=== PATIENT | female | born 1965 | race Caucasian/White ===

== ENCOUNTER 2018-07-21 07:09 | Day surgery (SDC) | payer OTHER ==
[2018-07-21] MEDS: BUPIVACAINE 0.25% (MPF) 30 ML INJ INJ
[2018-07-21] MEDS ORDERED: CEFAZOLIN 2 GM/50 ML (PMX) 50 ML IVPB (09:30)
[2018-07-21] MEDS ORDERED: SOD CHLORIDE 0.9% 1,000 ML IV (09:30)
[2018-07-21] MEDS ORDERED: MIDAZOLAM 1 MG/ML 2 ML INJ (10:16)
[2018-07-21] MEDS: BUPIVACAINE 0.25% (MPF) 30 ML INJ (10:16)
[2018-07-21] MEDS ORDERED: DIPHENHYDRAMINE 50 MG INJ IV (10:30)
[2018-07-21] MEDS ORDERED: METOCLOPRAMIDE 10 MG INJ IV (10:30)
[2018-07-21] MEDS ORDERED: HYDROmorphONE 1 MG/5 ML IV SYRINGE IV ×2 (10:30)
[2018-07-21] MEDS ORDERED: ONDANSETRON 4 MG INJ IV (10:30)
[2018-07-21] MEDS ORDERED: FENTAnyl 50 MCG/ML VIAL IV (10:30)
[2018-07-21] MEDS ORDERED: CEFAZOLIN 1 GM INJ (10:57)
[2018-07-21] MEDS ORDERED: LIDOCAINE 2% (SDV) 5 ML INJ (10:57)
[2018-07-21] MEDS ORDERED: GLYCOPYRROLATE 0.4 MG INJ (10:57)
[2018-07-21] MEDS ORDERED: PROPOFOL 20 ML (10:57)
[2018-07-21] MEDS ORDERED: NEOSTIGMINE 3 MG/3 ML SYRINGE (10:57)
[2018-07-21] MEDS ORDERED: ROCURONIUM 50 MG INJ (10:57)
[2018-07-21] MEDS ORDERED: ONDANSETRON 4 MG INJ (10:58)
[2018-07-21] MEDS: MEPERIDINE 25 MG INJ IV (12:29)
[2018-07-21] MEDS: HYDROCODONE/APAP (5/325) TAB PO (12:29)
== END 2018-07-21 13:39 | disposition home or self-care (01) ==
LOC: SDS 07:09
DX: K80.10 Calculus of gallbladder with chronic cholecystitis without obstruction (principal)
CPT/HCPCS: 47562; 71045; 88304